=== PATIENT | male | born 1935 | race Caucasian/White ===

== ENCOUNTER 2019-05-15 07:36 | Inpatient (IN) | payer MEDICARE, BC ==
[~2019-05-15] VITALS: Ht 172.7 cm; Wt 87.0 kg
[~2019-05-15 07:36] MED LIST: ALBUTEROL0.83 MG/ML IH; AMOXICILLIN 8751 TAB PO; CODEINE PO; COZAAR 50MG50 MG/TAB PO; EXCEDRIN 250 MG1 TAB PO; GUAIFENESIN PO; HCTZ PO; SYNTHROID0.075 MG/T PO
[2019-05-15 08:10] LABS: BASO % 0.2 % (0.0-2.0); EOS # 0.1 (0.0-0.7); EOS % 1.4 % (0-4.0); GRAN # 3.1 (1.4-6.5); GRAN % 64.5 % (42.2-75.2); HEMOGLOBIN 10.4 g/dl (13.5-18.0); LYMPH # 1.1 (1.2-3.4); MEAN CELL VOLUME 103 fl (80.0-100.0); MEAN CORPUSCULAR HEMOGLOBIN 35 pg (27.0-31.0); MEAN CORPUSCULAR HGB CONC 34 g/dl (33.0-37.0); MEAN PLATELET VOLUME 9.4 fl (7.4-10.4); MONO # 0.6 (0.1-0.6); MONO % 11.5 % (1.7-9.3); PLATELET COUNT 169 K/mm3 (130-400); RED BLOOD COUNT 2.97 M/mm3 (4.20-5.60); REDCELL DISTRIBUTION WIDTH-CV 12.4 % (11.5-14.5)
[2019-05-15 08:11] LABS: INR 1.1 (0.8-3.0)
[2019-05-15 08:14] LABS: HEMATOCRIT 30.6 % (42.0-52.0); PARTIAL THROMBOPLASTIN TIME 33.6 SECONDS (26.0-37.0)
[2019-05-15 08:22] LABS: ALANINE AMINOTRANSFERASE 20 U/L (21-72); ALBUMIN 2.8 gm/dL (3.5-5.0); ALKALINE PHOSPHATASE 43 U/L (50-136); ANION GAP 6 mmol/L (7-16); AST,SGOT 48 U/L (15-37); BILIRUBIN,TOTAL 0.8 mg/dL (0.0-1.0); BLOOD UREA NITROGEN 11 mg/dL (9-20); CALCIUM 7.2 mg/dL (8.4-10.2); CARBON DIOXIDE 24 mmol/L (22-30); CHLORIDE 105 mmol/L (98-107); CREATININE, serum 0.55 (0.66-1.25); GLUCOSE 77 mg/dL (74-106); POTASSIUM 3.4 mmol/L (3.4-5.0); SODIUM 135 mmol/L (137-145); TOTAL PROTEIN 5.4 gm/dL (6.4-8.2)
[2019-05-15 08:37] LABS: TROPONIN-I < 0.012 ng/mL (0.000-0.035)
[2019-05-15 08:53] VITALS: BP 145/80; PULSE 65
--- NOTE | 2019-05-15 11:51 | NUR ---
Resting on cart. Very talkative. C/o right arm and right leg " just not moving the way they normally do". Lungs CTA. Bowel sounds x4. 20 gauge INT had been placed to left hand. Pupils 2 cm and fixed. +1 edema noted to right leg. Follows directions and answers questions apporpriately
[2019-05-15] MEDS ORDERED: TYLENOL 500MG500 MG PO (11:55)
--- NOTE | 2019-05-15 14:45 | NUR ---
Pt arrives to medical unit rm 306 from ED via WC accompanied by SLEEVE MAKER's and pt's family. Pt awake and alert, oriented x 4. Slight drift to right upper ext, hand salesforce trainer equal bilat. Strength to lower ext equal bilat with slight limp on right side when ambulating, otherwise steady gait. Pt denies pain at this time. Saline lock IV without s/s of complications. No further needs reported. Call light in reach.
--- NOTE | 2019-05-15 15:14 | NUR ---
Pt to MRI for testing via WC.
--- NOTE | 2019-05-15 15:30 | NUR ---
Pt back to room from MRI.
[2019-05-15 16:36] VITALS: BP 141/86; PULSE 63; TEMP 97.8
[2019-05-15 19:09] VITALS: BP 133/82; PULSE 65; TEMP 98.1
--- NOTE | 2019-05-15 20:00 | NUR ---
PT A/O X4, AMBULATING IN ROOM. PT HAD BUMPED IV ON LEFT HAND AND LEFT HAND WAS BLEEDING. APPLIED PRESSURE TO SITE THEN HAD TAKEN IV OUT APPLIED PRESSURE TILL BLEEDING STOPPED AND A PROTECTIVE DRSG OVER SITE. PLACED A NEW 20G IV IN LEFT AC, X2 ATTEMPTS, WITH NO DIFFICULTIES, AND PT TOLERATED WELL. PT DID NOT APPEAR TO HAVE ANY RESIDUALS WHEN AMBULATING, BUT WHEN PT TRIES TO HOLD RIGHT ARM UP HE HAS TO USE THE LEFT HAND TO BRING RIGHT ARM UP. PT'S EXTRUSION MACHINE OPERATOR ARE EQUAL BUT STRENGTH IN RIGHT ARM IS MUCH WEAKER WHEN APPLYING PRESSURE UP OR DOWN WHEN ARMS ARE HELD UP. PT DENIES PAIN OR DISCOMFORT AND IS AWARE THAT HE WILL BE AWAKEN FOR NEURO CHECKS AND STROKE SCALE. PT'S FAMILY WAS IN ROOM WITH PT VISITING BUT HAS SINCE LEFT AND NOW PT IN BED WITH HOB AT 30 DEGREE ANGLE AND REST/SLEEPING. CALL LIGHT WITHIN REACH.
--- NOTE | 2019-05-15 22:14 | NUR ---
CALLED DR. CH IN REFERENCE TO LIPITOR AND NEURO CHECKS. DR. CH ADVISED THAT LIPITOR IS GIVEN TO EVERYONE WHO HAS HAD A STROKE AND CAN CHANGE NEURO CHECKS FROM EVERY 2 HOURS TO EVERY 4 HOURS.
[2019-05-16 00:31] LABS: FOLATE (FOLIC ACID) 17.2 ng/mL (7.0-31.4)
[2019-05-16 00:35] VITALS: BP 136/78; PULSE 60; TEMP 97.9
[2019-05-16 04:00] VITALS: BP 132/82; PULSE 68; TEMP 97.9
--- NOTE | 2019-05-16 05:00 | NUR ---
PT SLEEPING/RESTING WITH HOB AT 15 DEGREE ANGLE. PT AWAKENS EASILY FOR NEURO AND STROKE SCALE ASSESSMENTS. PT'S 0400 NEURO'S AND STROKE SCALE ASSESSMENT, SEEMED TO HAVE SOME IMPROVEMENT WITH HIS RIGHT ARM. PT WAS ABLE TO LIFT IT WITHOUT THE LEFT HAND HELPING, AND DRIFT WAS MINIMAL. STRENGHT WAS STILL WEAK WHEN APPLYING RESISTANCE. PT A/O X4, DENIES PAIN OR DISCOMFORT AND HAS NO NEEDS AT THIS TIME. CALL LIGHT WITHIN REACH.
[2019-05-16 07:12] LABS: BASO % 0.3 % (0.0-2.0); EOS # 0.1 (0.0-0.7); EOS % 2.8 % (0-4.0); GRAN # 1.8 (1.4-6.5); GRAN % 50.3 % (42.2-75.2); HEMOGLOBIN 11.7 g/dl (13.5-18.0); LYMPH # 1.1 (1.2-3.4); MEAN CELL VOLUME 103 fl (80.0-100.0); MEAN CORPUSCULAR HEMOGLOBIN 35 pg (27.0-31.0); MEAN CORPUSCULAR HGB CONC 34 g/dl (33.0-37.0); MEAN PLATELET VOLUME 9.7 fl (7.4-10.4); MONO # 0.6 (0.1-0.6); MONO % 15.6 % (1.7-9.3); PLATELET COUNT 210 K/mm3 (130-400); RED BLOOD COUNT 3.33 M/mm3 (4.20-5.60); REDCELL DISTRIBUTION WIDTH-CV 12.5 % (11.5-14.5)
[2019-05-16 07:17] LABS: HEMATOCRIT 34.2 % (42.0-52.0)
[2019-05-16 07:25] LABS: ALBUMIN 3.7 gm/dL (3.5-5.0); CALCIUM 9.2 mg/dL (8.4-10.2); CHOLESTEROL RISK RATIO 5.8; CREATININE, serum 0.64 (0.66-1.25); POTASSIUM 3.7 mmol/L (3.4-5.0); TOTAL PROTEIN 6.7 gm/dL (6.4-8.2)
[2019-05-16 07:48] VITALS: BP 137/92; PULSE 71; TEMP 97.7
--- NOTE | 2019-05-16 08:24 | NUR ---
Pt assessment completed and charted. Pt appears to be doing well. Per pt he wasn't able to lift right arm without assistance prior. pt ambulating independently in halls with no issues, steady gait. Neuro checks are good and pt not scoring on stroke scale. Pt denies dizziness, SOB, N/V, chest pain. LAC INT IV flushes with no complications. Pt denies other needs at this time. Call light within reach.
[2019-05-16] MEDS ORDERED: PLAVIX 75MG TAB75 MG PO (10:09)
[2019-05-16] MEDS ORDERED: LIPITOR 40MG TA40 MG PO (10:10)
[2019-05-16] MEDS ORDERED: ASPIRIN 81M81 MG/TA2 PO (10:11)
--- NOTE | 2019-05-16 12:06 | NUR ---
Pt discharge instructions discussed and reviewed with patient and family. All questions answered and verbalizes understanding. LAC INT IV dc'd with catheter tip intact and no complications. Pt escorted out via WC by this nurse.
== END 2019-05-16 12:07 | disposition home or self-care (01) | DRG 65 ==
LOC: COL.ER 07:36 → MEDICAL 10:37 → COL.ER 10:37 → MEDICAL 05-16 12:07
PROVIDERS: Emergency Medicine; Physician Assistant; ADMIT Hospitalist
DX: I63.9 Cerebral infarction, unspecified (principal); E87.1 Hypo-osmolality and hyponatremia; I10 Essential (primary) hypertension; I65.22 Occlusion and stenosis of left carotid artery; I65.1 Occlusion and stenosis of basilar artery; E03.9 Hypothyroidism, unspecified; E78.00 Pure hypercholesterolemia, unspecified; D50.9 Iron deficiency anemia, unspecified; J98.4 Other disorders of lung; M85.80 Other specified disorders of bone density and structure, unspecified site; Z85.46 Personal history of malignant neoplasm of prostate; Z92.3 Personal history of irradiation; Z87.891 Personal history of nicotine dependence; Z88.0 Allergy status to penicillin; Z88.8 Allergy status to other drugs, medicaments and biological substances
CPT/HCPCS: 99222-AI; A9585; J1650; Q9967

== ENCOUNTER 2019-06-30 09:00 | Outpatient (RCR) | payer MEDICARE, BC ==
[~2019-06-30 09:00] MED LIST changes: +ASPIRIN 81M81 MG/TA2 PO; +LIPITOR 40MG TA40 MG PO; +PLAVIX 75MG TAB75 MG PO; +TYLENOL 500MG500 MG PO
== END 2019-08-31 | disposition home or self-care (01) ==
LOC: WSPT
DX: I63.9 Cerebral infarction, unspecified (principal)

== ENCOUNTER 2019-09-30 14:43 | Outpatient (CLI) | payer MEDICARE, BC ==
[~2019-09-30] VITALS: Ht 172.7 cm; Wt 85.0 kg
[2019-09-30 15:10] VITALS: BP 130/83; PULSE 71; TEMP 97.2
[2019-09-30] MEDS ORDERED: PLAVIX 75MG TAB75 MG PO (15:27)
[2019-09-30] MEDS ORDERED: B-121000 MCG PO (15:29)
[2019-09-30] MEDS ORDERED: GLUCOSAMINE & C1 TAB PO (15:30)
[2019-09-30] MEDS ORDERED: CALCIUM CARBON650 M2 PO (15:30)
[2019-09-30] MEDS ORDERED: CLARITIN 1010 MG/TAB PO (15:31)
[2019-09-30] MEDS ORDERED: MULTI VITAMINS1 TAB PO (15:32)
[2019-09-30] MEDS ORDERED: SELENIUM200 MC5 PO (15:32)
[2019-09-30] MEDS ORDERED: VITAMIN C500 MG PO (15:33)
[2019-09-30] MEDS ORDERED: VITAMIN D31000 I1 PO (15:33)
[2019-09-30] MEDS ORDERED: LIPITOR 40MG TA40 MG PO (15:34)
--- NOTE | 2019-09-30 16:25 | NUR ---
Pt zoie reclast well. Pt discharged per ambulation with .
== END 2019-09-30 16:28 | disposition home or self-care (01) ==
LOC: EUO 14:43
DX: M81.6 Localized osteoporosis [Lequesne] (principal)
CPT/HCPCS: J3489

== ENCOUNTER → 2021-04-06 | Day surgery (SDC) | payer MEDICARE, BC ==
[~2021-04-06] VITALS: Ht 172.7 cm; Wt 81.2 kg
[~2021-04-06] MED LIST changes: +B-121000 MCG PO; +CALCIUM CARBON650 M2 PO; +CLARITIN 1010 MG/TAB PO; +GLUCOSAMINE & C1 TAB PO; +MULTI VITAMINS1 TAB PO; +ONE-A-DAY ESSE1 EACH PO; +SELENIUM200 MC5 PO; +SYNTHROID0.125 MG/T PO; +VITAMIN C500 MG PO; +VITAMIN D31000 I1 PO
[2021-04-06 08:27] VITALS: BP 80/63; PULSE 86; TEMP 98.2
[2021-04-06 08:54] LABS: HEMOGLOBIN 10.6 g/dl (13.5-18.0)
[2021-04-06 08:56] LABS: HEMATOCRIT 31.8 % (42.0-52.0)
[2021-04-06 09:55] VITALS: BP 113/78; PULSE 68; TEMP 97
--- NOTE | 2021-04-06 09:55 | NUR ---
Patient arrives back to [facility] at this time. Patient remains on cart due to drowsiness. Patient monitor applied, vitals stable. Patient's daughter and spouse at bedside. Dr Sol is visiting with patient's family to go over procedure results at this time.
[2021-04-06 10:10] VITALS: BP 122/78; PULSE 70
[2021-04-06 10:25] VITALS: BP 138/84; PULSE 66
--- NOTE | 2021-04-06 10:45 | NUR ---
1010 - Patient waking up at this time. 1015 - Patient given muffin and soda at this time. 1025 - Patient tolerating muffin and soda well and without any nausea. Vitals stable. 1030 - Dismissal instructions gone over with patient. Paitent and family voice understanding and all questions answered. 1045 - Patient discharged to private vehicle his daughter is driving at patient enterance via wheelchair without any complications. Patient leaves thanking staff for services.
== END ==
LOC: SDCO 07:53
PROVIDERS: Registered Nurse
DX: D12.4 Benign neoplasm of descending colon (principal); R53.82 Chronic fatigue, unspecified; D64.9 Anemia, unspecified; K57.30 Diverticulosis of large intestine without perforation or abscess without bleeding; E03.9 Hypothyroidism, unspecified; M81.0 Age-related osteoporosis without current pathological fracture; I10 Essential (primary) hypertension; E78.5 Hyperlipidemia, unspecified; M19.90 Unspecified osteoarthritis, unspecified site; E78.00 Pure hypercholesterolemia, unspecified; Z79.890 Hormone replacement therapy; Z79.899 Other long term (current) drug therapy; Z79.02 Long term (current) use of antithrombotics/antiplatelets; Z86.73 Personal history of transient ischemic attack (TIA), and cerebral infarction without residual deficits; Z85.46 Personal history of malignant neoplasm of prostate; Z80.9 Family history of malignant neoplasm, unspecified
CPT/HCPCS: J2370; J2704; J7030

== ENCOUNTER 2021-04-13 18:18 | Inpatient (IN) | payer MEDICARE, BC ==
[~2021-04-13] VITALS: Ht 172.7 cm; Wt 78.0 kg
[2021-04-13 18:59] LABS: BASO % 0.3 % (0.0-2.0); EOS # 0.1 (0.0-0.7); EOS % 1.4 % (0-4.0); GRAN # 4.7 (1.4-6.5); GRAN % 59.1 % (42.2-75.2); HEMOGLOBIN 11.3 g/dl (13.5-18.0); LYMPH # 2.1 (1.2-3.4); LYMPH % 25.9 % (20.0-51.0); MEAN CELL VOLUME 100 fl (80.0-100.0); MEAN CORPUSCULAR HEMOGLOBIN 35 pg (27.0-31.0); MEAN CORPUSCULAR HGB CONC 35 g/dl (33.0-37.0); MONO % 12.9 % (1.7-9.3); PLATELET COUNT 226 K/mm3 (130-400); RED BLOOD COUNT 3.26 M/mm3 (4.20-5.60); REDCELL DISTRIBUTION WIDTH-CV 12.8 % (11.5-14.5)
[2021-04-13 19:03] LABS: HEMATOCRIT 32.6 % (42.0-52.0)
[2021-04-13 19:13] LABS: ALANINE AMINOTRANSFERASE 48 U/L (4-49); ALBUMIN 3.5 gm/dL (3.5-5.0); ALKALINE PHOSPHATASE 84 U/L (50-136); ANION GAP 4 mmol/L (7-16); AST,SGOT 89 U/L (15-37); BLOOD UREA NITROGEN 31 mg/dL (9-20); CARBON DIOXIDE 27 mmol/L (22-30); CHLORIDE 101 mmol/L (98-107); CREATININE, serum 2.17 (0.66-1.25); GLUCOSE 102 mg/dL (74-106); POTASSIUM 3.5 mmol/L (3.4-5.0); SODIUM 133 mmol/L (137-145); TOTAL PROTEIN 6.7 gm/dL (6.4-8.2)
[2021-04-13 19:30] LABS: TROPONIN-I < 0.012 ng/mL (0.000-0.035)
[2021-04-13 19:31] LABS: CALCIUM 16.2 mg/dL (8.4-10.2)
[2021-04-13 20:05] LABS: COLLECTION METHOD CATHETER
[2021-04-13 20:06] LABS: INR 1.1 (0.8-3.0); PROTHROMBIN TIME 12.2 SECONDS (9.7-12.8)
[2021-04-13 20:09] LABS: PARTIAL THROMBOPLASTIN TIME 29.9 SECONDS (26.0-37.0)
[2021-04-13 20:25] LABS: PH 6 (5-8); SQUAMOUS EPITHELIAL 0-2 /hpf; URINE APPEARANCE Clear; URINE BACTERIA Rare /hpf; URINE BILIRUBIN Negative (NEGATIVE); URINE BLOOD Negative (NEGATIVE); URINE COLOR Yellow; URINE GLUCOSE Negative (NEGATIVE); URINE KETONE Negative (NEGATIVE); URINE LEUKOCYTE ESTERASE Negative (NEGATIVE); URINE NITRATE Negative (NEGATIVE); URINE PROTEIN(semi-quant) Negative (NEGATIVE); URINE RBC 0-2 /hpf; URINE UROBILINOGEN Negative (NEGATIVE)
--- NOTE | 2021-04-14 01:53 | NUR ---
ARRIVED TO UNIT ATTEMPTED TO CLIMB OUT OF BED. REORIENTATED, BED ALARM ON. PT THEN WAS FOUND TO HAVE PULLED OUT HIS DOMINGUEZ CATH. REPLACED W C/O IT HURTING. ASSESSMENT DONE. CALL LIGHT WI REACH. EYES VIEW FROM NURSE STATION PT HAS HAD MULTIPLE FALLS.
--- NOTE | 2021-04-14 03:55 | NUR ---
PT CONTINUES TO TRY TO GET OUT OF BED SETTING OFF ALARMS MULTIPLE TIMES. REORIENTATED TO SITUATION.
[2021-04-14 04:53] VITALS: BP 149/93; PULSE 95; TEMP 97.6
--- NOTE | 2021-04-14 05:47 | NUR ---
TV TURNED ON FOR DISTACTION. IV FLUIDS RUNNING AND COBAINED PT IS ALL OVER IN THE BED. STAT LOCK REPLACED TO DOMINGUEZ.
[2021-04-14 07:37] VITALS: BP 143/98; PULSE 103; TEMP 97.7
[2021-04-14 12:00] VITALS: BP 151/86; PULSE 83; TEMP 97.7
[2021-04-14 12:16] LABS: ALBUMIN 3.6 gm/dL (3.5-5.0); BILIRUBIN,TOTAL 0.8 mg/dL (0.0-1.0); CREATININE, serum 2.17 (0.66-1.25); TOTAL PROTEIN 6.6 gm/dL (6.4-8.2)
[2021-04-14 12:20] LABS: BASO % 0.2 % (0.0-2.0); GRAN # 10.3 (1.4-6.5); GRAN % 78.7 % (42.2-75.2); HEMOGLOBIN 10.9 g/dl (13.5-18.0); LYMPH # 1.9 (1.2-3.4); LYMPH % 14.2 % (20.0-51.0); MEAN CELL VOLUME 102 fl (80.0-100.0); MEAN CORPUSCULAR HEMOGLOBIN 34 pg (27.0-31.0); MEAN CORPUSCULAR HGB CONC 33 g/dl (33.0-37.0); MEAN PLATELET VOLUME 10.1 fl (7.4-10.4); MONO # 0.8 (0.1-0.6); MONO % 6.4 % (1.7-9.3); PLATELET COUNT 239 K/mm3 (130-400); REDCELL DISTRIBUTION WIDTH-CV 12.8 % (11.5-14.5)
[2021-04-14 12:21] LABS: URIC ACID 8.6 mg/dL (3.5-8.5)
[2021-04-14 12:27] LABS: CALCIUM 14.4 mg/dL (8.4-10.2)
[2021-04-14 12:38] LABS: HEMATOCRIT 32.6 % (42.0-52.0)
--- NOTE | 2021-04-14 15:46 | NUR ---
DAVID met with the patient's , Anjana (c.ph#[phone], h.ph#[phone]), to discuss discharge plan. The patient lives in [place] with his . Anjana reports that the patient was very active and independent with ADLs up until a few days ago. She reports that recently he has been needing assistance with his ADLs and has a cane and walker. The patient's PCP is Dr. Martin Siddiqui and he receives his medications from [facility]. The patient does not have a DPOA-HC, but his was interested in obtaining a form. DAVID provided. PT/OT is recommending SNF. The patient had increased falls and confusion at home before coming home. DAVID discussed SNF with Anjana. Anjana reports that she would like to be able to take the patient home, if able, and would be open to home health. DAVID informed her how the patient is a fall risk. Anjana would like to see how the patient does. SW to continue to follow. *Discharge plan: would like to see how the patient does, but would like for him to return home with her*
[2021-04-14 16:00] VITALS: BP 138/88; PULSE 86; TEMP 97.8
[2021-04-14 19:44] VITALS: BP 134/84; PULSE 84; TEMP 98.1
--- NOTE | 2021-04-14 22:35 | NUR ---
SLEEPING UPON ASSESSMENT. WAKES AT TIMES AND ATTEMPTS TO CLIMB OUT OF BED. NOT ALERT ENOUGH FOR COLACE ORDERED AND HELD. NS GOING AT 100ML. K PROTOCOL ORDERED BY DR VIEYRA WILL PLACE ORDER. ALBERTO STEINER TO VISH.
[2021-04-15] VITALS (57 sets, daily range): BP systolic 82–150; BP diastolic 59–98; PULSE 76–107; TEMP 97.6–97.9; O2SAT 92–100
--- NOTE | 2021-04-15 04:45 | NUR ---
Rested though the night. IV to left FA infiltrated. RT FA restart.
--- NOTE | 2021-04-15 07:00 | NUR ---
PT LAYING IN BED, REMAINS RESTLESS IN BED. SPEECH IS INCOMPREHENSIBLE. NO OTHER CONCERNS AT THIS TIME.
[2021-04-15 08:31] LABS: BASO % 0.1 % (0.0-2.0); EOS % 0.1 % (0-4.0); GRAN # 10.2 (1.4-6.5); GRAN % 75.2 % (42.2-75.2); HEMOGLOBIN 11.7 g/dl (13.5-18.0); LYMPH % 14.9 % (20.0-51.0); MEAN CELL VOLUME 102 fl (80.0-100.0); MEAN CORPUSCULAR HEMOGLOBIN 34 pg (27.0-31.0); MEAN CORPUSCULAR HGB CONC 34 g/dl (33.0-37.0); MEAN PLATELET VOLUME 10.3 fl (7.4-10.4); MONO # 1.2 (0.1-0.6); MONO % 9.2 % (1.7-9.3); PLATELET COUNT 260 K/mm3 (130-400); REDCELL DISTRIBUTION WIDTH-CV 12.9 % (11.5-14.5)
[2021-04-15 08:38] LABS: HEMATOCRIT 34.7 % (42.0-52.0)
[2021-04-15 08:43] LABS: ALBUMIN 3.5 gm/dL (3.5-5.0); CREATININE, serum 2.02 (0.66-1.25); PHOSPHOROUS 2.7 mg/dL (2.5-4.5)
[2021-04-15 08:46] LABS: POTASSIUM 2.6 mmol/L (3.4-5.0)
--- NOTE | 2021-04-15 10:50 | NUR ---
Attempting to give patient his medications with breakfast. Successful with two medications the others were unsuccessful. The patient is having 20 second periods of apnea each minute, and during the other 40 seconds is breathing at 32 respirations. He continues to be very confused, and incomprehensible words. He is accompanied by his at bedside. Dr. Ruelas has been notified of the low potassium as well as the apnea episodes. The patient grimaces when assessing the abdomen. The patient seems to be constipated as he is smearing on the veronica pad, but is unable to have a BM. Colace was administered this am. No other concerns at this time. will continue to assess frequently.
--- NOTE | 2021-04-15 12:01 | NUR ---
Daughter Janel Fregoso on the phone would like to have her number added into the system, phone number is; [phone].
[2021-04-15 19:20] LABS: ARTERIAL BLD GAS O2 SATURATION 99.2 % (92-100); ARTERIAL BLD GAS TCO2 CT 23.6; ARTERIAL BLOOD GAS BASE EXCESS -0.5 (-2-2); ARTERIAL BLOOD GAS HCO3 22.6 meq/L (22-26); ARTERIAL BLOOD GAS PCO2 32.2 mmHg (35-45); ARTERIAL BLOOD GAS pH 7.46 (7.35-7.45)
[2021-04-15 19:21] LABS: ARTERIAL BLOOD GAS PO2 232.8 mmHg (80-100)
[2021-04-15 19:30] LABS: BASO % 0.1 % (0.0-2.0); EOS # 0.1 (0.0-0.7); EOS % 0.4 % (0-4.0); GRAN % 65.5 % (42.2-75.2); HEMOGLOBIN 11.8 g/dl (13.5-18.0); LYMPH % 24.1 % (20.0-51.0); MEAN CELL VOLUME 103 fl (80.0-100.0); MEAN CORPUSCULAR HEMOGLOBIN 34 pg (27.0-31.0); MEAN CORPUSCULAR HGB CONC 33 g/dl (33.0-37.0); MONO # 1.2 (0.1-0.6); MONO % 9.7 % (1.7-9.3); PLATELET COUNT 255 K/mm3 (130-400); RED BLOOD COUNT 3.49 M/mm3 (4.20-5.60); REDCELL DISTRIBUTION WIDTH-CV 12.9 % (11.5-14.5)
[2021-04-15 19:31] LABS: HEMATOCRIT 36.1 % (42.0-52.0)
[2021-04-15 19:41] LABS: ALBUMIN 3.7 gm/dL (3.5-5.0); BILIRUBIN,TOTAL 1.1 mg/dL (0.0-1.0); CREATININE, serum 1.83 (0.66-1.25); POTASSIUM 3.3 mmol/L (3.4-5.0); TOTAL PROTEIN 6.8 gm/dL (6.4-8.2)
[2021-04-15 19:54] LABS: PHOSPHOROUS 2.2 mg/dL (2.5-4.5)
[2021-04-15 19:58] LABS: TROPONIN-I 0.02 ng/mL (0.000-0.035)
--- NOTE | 2021-04-15 20:36 | NUR ---
At approximately 1840 PRIYA Goyal came to get this RN to advise that the patient was attempting to get out of bed, and that telemetry called to say that the patient was in SVT. This RN went immediately to the patient's room where PRIYA Escobar, and PRIYA Quiles were at bedside getting a set of vital signs as well as getting O2 saturations. 185: Dr. Ruelas notified of pt's status. Said to Consult Hospitalist and Cardiology. 185; FRANKIE Eckert was consulted. Pt status is rapidly declining. Attempting to get blood pressures, pt is moving too much. Pt's heartrate is 140's. Dr. Chapa consulted by telephone with FRANKIE Eckert. 190; FRANKIE Eckert arrived to room. MEDICAL TRANSLATOR, PRIYA Polanco is at the bedside as well as RT who runs a stat EKG. Daytime Teacher Of The Deaf PRIYA Martinez is in the room with PM Teacher Of The Deaf PRIYA Ybarra. 191; Pt's hearrate is sustained 140's-160's, EKG notes Aflutter, Tele-tech says it appears to be Afib rvr. Dr. Chapa on the telephone with FRANKIE Eckert who is at bedside at this time. PRIYA Goyal has brought in the Crash cart, and pads are placed on the patient. The patient is very restless and agitated. 191; Labs are drawn, ABG's are drawn, IV site procured by PRIYA Polanco in the left antecubital. 192; FRANKIE Eckert orders 2mg Morphine, and 0.5mg Ativan that is already on the MAR. PRIYA Quiles pulls meds and brings them to bedside. 1928; Ativan and Morphine given, pt HR is sustained in the 140's. Tomeka DAVID orders Cardizem bolus. 1931; 10mg bolus of Cardizem administered. HR 146 1933; Pt's heart rate remains 145. FRANKIE Eckert orders another 5mg Cardizem bolus. 1946; Blood pressure check 149/111, HR 157 Dr Ruelas arrives at bedside. 1949; Pt's heart rate is still sustained at 145. FRANKIE Eckert orders another 15mg bolus of Cardizem. 1950; 15mg Cardizem administered. 2000; Blood pressure check 134/82 HR sustained 140s. FRANKIE Eckert is on the phone with Janel (Pts daughter who is the DPOA.) Janel and Anjana (pt's ) decide that in the event his heart stops, we will not attempt to resusitate. 2002; ICU transfer initiated Pt is now a DNR. Pt's BP is now 83/69 HR 148 2009; PT is in ICU rm 3. PRIYA Dotson is receiving RN. Report is given to PRIYA Dotson by this RN. Transfer of care completed. pt's O2 was in the 70s. PRIYA Quiles went to get the patient an oxymask. Oxymask applied as CAT call was being made.
--- NOTE | 2021-04-15 20:41 | NUR ---
BP 100/[address] Ruelas give 250 fluid bolus and keep a bag hanging.
--- NOTE | 2021-04-15 20:54 | NUR ---
Report called to PRIYA Marx at [facility]
--- NOTE | 2021-04-15 22:16 | NUR ---
Patient arrived to ICU at 2004. Assessment complete and charted. at bedside. Cardizem gtt infusing at 5mg/hr. Dr. Ruelas arrived to bedside at 2019. [facility] supervisior working on transfer to [facility]. [address] Ruelas given 20mg Lasix IV now. Patient BP 82/63. Hold lasix. Hold cardizem. 2040 BP improved to 100/71. Per Dr. Ruelas give 250ml fluid bolus and leave 1000ml bag hanging. 2044: Per Dr. Ruelas give 10meq IV potassium now. Last potassium 3.3. 2099 EMS arrived for patient transfer to [facility]. Report given to EMS. Patient left unit at 2115. Francisco J updated regarding potassium and patient leaving time.
[2021-04-17 08:02] LABS: KAPPA FREE LIGHT CHAIN-SERUM 38.99 mg/L (()); KAPPA LAMBDA RATIO 1.19 ratio (()); LAMDA FREE LIGHT CHAIN SERUM 32.75 mg/L (())
[2021-04-17 18:09] LABS: A/G RATIO (PEP) 1.07 (()); BETA GLOBULINS (PEP) 0.8 g/dL (0.7-1.2)
== END 2021-04-15 21:16 | disposition short-term general hospital (02) | DRG 682 ==
LOC: COL.ER 18:18 → MEDICAL 21:01 → ICU 04-15 20:00
PROVIDERS: Emergency Medicine; Internal Medicine; Nurse Practitioner; Nurse Practitioner Family; ADMIT Internal Medicine Nephrology
DX: N17.9 Acute kidney failure, unspecified (principal); G93.41 Metabolic encephalopathy; I48.92 Unspecified atrial flutter; C90.00 Multiple myeloma not having achieved remission; D64.9 Anemia, unspecified; E03.9 Hypothyroidism, unspecified; E78.5 Hyperlipidemia, unspecified; Z20.822 Contact with and (suspected) exposure to COVID-19; Z66 Do not resuscitate; E83.52 Hypercalcemia; E87.6 Hypokalemia; Z85.46 Personal history of malignant neoplasm of prostate; Z86.73 Personal history of transient ischemic attack (TIA), and cerebral infarction without residual deficits
CPT/HCPCS: 99223; J1100; J1940; J2060; J2270; J2430; J3480; J7030